=== PATIENT | male | born 1955 | race Caucasian/White ===

== ENCOUNTER 2018-11-23 20:38 | Emergency (ER) | payer MEDICARE, BC ==
--- OUTSIDE RECORDS SUMMARY | 2018-11-23 20:58 | XMS REPORT | Continuity of Care Document ---
:1955 External Reference #:[id number] Author Name Earnestine Hung Care Team Providers Name Role Phone Oliverio Mancini MD Care Team Information Learning Development Specialist Unavailable Payers Date Identification Numbers Payment Provider Subscriber Effective: 2018 Policy Number: [id number] Medicare Alpesh R Contento Group Name: Federal [address] PayID: [id number] [place] [id number] Effective: 2012 Policy Number: [id number] [facility] Commercial Alpesh R Contento Group Number: [employer] [address] [address] Group Name: TYREE Rose [id number] PayID: [id number] Onset: 2005 [employer] [address] [place] [address] Onset: 2010 Policy Number: [id number] [place] [employer] Alpesh R Contento PayID: [id number] [address] [place] [address] Advance Directives Description No Information Available Problems Date Description Provider Status Onset: 11/25/2013 Vitamin D deficiency Oliverio Mancini MD Active Onset: 12/29/2012 Type II diabetes mellitus Oliverio Mancini MD Active uncontrolled Onset: 03/07/2007 Impotence of organic origin Oliverio Mancini MD Active Onset: 11/27/2004 Proteinuria Oliverio Mancini MD Active Onset: 11/27/2004 Obesity Oliverio Mancini MD Active Onset: 11/27/2004 Tobacco user Oliverio Mancini MD Active Onset: 11/27/2004 Family history of prostate cancer Oliverio Mancini MD Active Onset: 11/27/2004 Carpal tunnel syndrome Oliverio Mancini MD Active Onset: 11/26/2004 Benign essential hypertension Oliverio Mancini MD Active Onset: 11/26/2004 Mixed hyperlipidemia Oliverio Mancini MD Active Onset: 09/17/2014 Obstructive sleep apnea syndrome Oliverio Mancini MD Active Onset: 10/15/2014 Type 2 diabetes mellitus Oliverio Mancini MD Active Onset: 10/15/2014 Sleep apnea Oliverio Mancini MD Active Onset: 03/05/2015 Chronic renal failure Oliverio Mancini MD Active Onset: 06/26/2015 Essential hypertension Oliverio Mancini MD Active Onset: 11/18/2015 Gastroesophageal reflux disease Oliverio Mancini MD Active Onset: 01/31/2017 Diabetic neuropathy Oliverio Mancini MD Active Onset: 11/27/2004 Diabetic polyneuropathy Oliverio Mancini MD Inactive Inactive: 01/31/2017 Onset: 06/26/2015 Renal failure syndrome Oliverio Mancini MD Inactive Inactive: 01/31/2017 Family History Date Family Member(s) Observation Comments Father DM2 Father CAD Father [place] Father Cancer, Prostate Mother PVD Mother CHF Mother DM2 First Brother Essential Tremor Social History Type Date Description Comments Sex Unknown Marital Status Lives With Spouse 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 ETOH Use Occasionally consumes alcohol Tobacco Use Start: Unknown Patient is a current smoker, smokes every day Smoking Status Reviewed: 11/22/18 Patient is a current smoker, smokes every day Allergies, Adverse Reactions, Alerts Date Description Reaction Status Severity Comments 09/10/2014 Celebrex Active GI Upset 09/10/2014 Flu Virus Vaccine Active Myalgias Medications Medication Date Status Form Strength Qnty SIG Indications Ordering Provider Rosuvastatin 04/05/ Active Tablets 5mg 90tabs take one E78.2 Digiovanna Calcium 2016 tablet by Oliverio mouth MD every evening Ranitidine HCL 11/17/ Active Tablets 300mg 14tabs take one K21.9 Digiovanna 2015 tablet by Oliverio mouth MD every day maximum daily dose=1 tablet Metoprolol 03/05/ Active Tablets ER 50mg 90tabs take one I10 Digiovanna Succinate ER 2014 24HR tablet by , leticia Duron MD every day Vitamin D3 10/15/ Active Capsules 2000Unit OTC 1 by E55.9 Digiovanna 2014 mouth , Oliverio, once MD daily Humalog Mix 03/21/ Active Supn (75-25)100 120uni inject 36 E11.65 Digiovanna 75/25 Kwikpen 2011 Unit/ML ts to 40 , pako Duron MD under the skin every morning and 80 to 90 units under the skin every evening E11.22 Amlodipine 11/04/2011 Active Tablets 10mg 90tabs take one I10 Digiovanna, Besylate tablet by MD Oliverio mouth every day Lisinopril 08/29/2009 Active Tablets 40mg 90tabs take one I10 Digiovanna, tablet by MD Oliverio mouth every day R80.1 N19 Aspirin Ec Low 11/13/[address] 81mg 100tabs 1 po qam E11.65 Unknown Dose with food I10 Torsemide Active Tablets 20mg 1 PO Q Am I10 Valdez Mcghee MD R60.0 N19 Onetouch Active Strips 200units Test Two Times E11.65 Digiovankosta, Ultra Blue A Day as MD Oliverio Needed Maximum Daily Dose=Three Times E10.42 E11.22 Fluticasone Active Suspension 50mcg/Act 1 spray J31.0 James Jameson MD Propionate per nostril twice a day Zostavax 04/05/2017 Hx Suspension 72457Zgs/0 1 administer Digiovanna, - Rec .65ML u 1 dose MD Oliverio 05/05/2017 n i t s Azithromycin 08/05/2016 Hx Tablets 250mg 6 2 pills by Bo Mancini, - t mouth day MD Oliverio 08/15/2016 a 1, then 1 b pill once s daily for 4 more days (take w/ food) Benzonatate 08/05/2016 Hx Capsules 200mg 3 1 pill by Bo Mancini, - 0 mouth 3 MD Oliverio 09/04/2016 c times a a day as p needed for s cough (swallow whole) Proair HFA 08/05/2016 Hx Aerosol 108(90Base 8 2 puffs R05 Digiovanna, - ) mcg/Act . every 3 h MD Oliverio 12/14/2016 5 as needed 0 for sob 0 g m [facility] Vitamin D3 10/03/2013 Hx Capsules 1000Unit 1 po Unknown - QWEEKx 10 10/15/2014 Weeks Atorvastatin 12/29/2012 Hx Tablets 20mg 9 Take 1 E78.2 Digiovanna, Calcium - 0 Tablet By MD Oliveiro 04/05/2017 t Mouth a Every b Evening s Omeprazole 07/28/[address] 20mg 3 Take 1 K21.9 Digiovanna, - 0 Capsule By MD Oliverio 11/18/2015 c Mouth a Every Day p s Viagra 05/25/2008 Hx Tablets 100mg 6 1 po qd Digiovanna, - t prn as Oliverio Bishop MD 08/05/2014 a directed b s Toprol XL Hx Tablets ER 25mg 1 by mouth 401.1 Unknown - 24HR every day 03/05/2015 Ergocalciferol Hx Capsules [id number] 1 1 by mouth Unknown - 2 every 1 10/06/2014 c week x 12 a weeks p s Penicillin V Hx Tablets 500mg 1 tab by Unknown Potassium - mouth 03/31/2016 three times a day Mometasone Hx Suspension 50mcg/Act 1 - 2 G47.33 James Jameosn MD Furoate - Sprays/Nos 12/14/2016 tril qd J31.0 Immunizations CPT Code Status Date Vaccine Lot # [id number] Given 09/29/2018 Flu Vaccine NOS 68030 Given 09/14/2018 Prevnar 13 Pneumococal Conjugate Vaccine [id number] Given 01/23/2010 Tdap (Adacel) Ages 7 And Above Only 68691 Given 01/23/2010 Tdap (Adacel) Ages 7 And Above Only 32274 Given 11/07/2009 Pneumococcal 23 Immunization Adult Or Immunosuppressed Patient Vital Signs Date Vital Result Comment 11/22/2018 2:11pm Body Temperature 98.1 F Heart Rate 74 /min Respiratory Rate 18 /min BP Systolic 120 mmHg BP Diastolic 70 mmHg Height 73 inches 6'1" Weight 271.19 lb BMI (Body Mass Index) 35.8 kg/m2 09/14/2018 8:05am Heart Rate 76 /min Respiratory Rate 18 /min BP Systolic 122 mmHg BP Diastolic 72 mmHg Height 72.75 inches 6'0.75" Weight 273.00 lb BMI (Body Mass Index) 36.3 kg/m2 12/29/2017 9:50am Heart Rate 66 /min Respiratory Rate 18 /min BP Systolic 120 mmHg BP Diastolic 78 mmHg Height 72.75 inches 6'0.75" Weight 264.00 lb BMI (Body Mass Index) 35.1 kg/m2 08/09/2017 2:51pm Heart Rate 74 /min Respiratory Rate 18 /min BP Systolic 122 mmHg BP Diastolic 70 mmHg Height 72.75 inches 6'0.75" Weight 268.00 lb BMI (Body Mass Index) 35.6 kg/m2 04/05/2017 3:40pm Body Temperature 97.1 F Heart Rate 74 /min Respiratory Rate 18 /min BP Systolic 122 mmHg BP Diastolic 76 mmHg Height 72.75 inches 6'0.75" Weight 260.00 lb BMI (Body Mass Index) 34.5 kg/m2 12/14/2016 3:00pm Heart Rate 70 /min BP Systolic 122 mmHg BP Diastolic 78 mmHg Height 72.75 inches 6'0.75" Weight 272.00 lb BMI (Body Mass Index) 36.1 kg/m2 08/05/2016 3:40pm Body Temperature 97.7 F Heart Rate 64 /min Respiratory Rate 18 /min BP Systolic 120 mmHg BP Diastolic 72 mmHg Height 72.75 inches 6'0.75" Weight 266.00 lb BMI (Body Mass Index) 35.3 kg/m2 O2 % BldC Oximetry 92 % Ra 03/30/2016 4:12pm Heart Rate 68 /min Respiratory Rate 19 /min BP Systolic 136 mmHg BP Diastolic 80 mmHg Height 72.75 inches 6'0.75" Weight 259.00 lb BMI (Body Mass Index) 34.4 kg/m2 11/18/2015 2:54pm Heart Rate 76 /min Respiratory Rate 18 /min BP Systolic 132 mmHg BP Diastolic 80 mmHg Height 72.75 inches 6'0.75" Weight 265.00 lb BMI (Body Mass Index) 35.2 kg/m2 06/26/2015 4:15pm Heart Rate 76 /min Respiratory Rate 18 /min BP Systolic 132 mmHg BP Diastolic 60 mmHg Height 72.75 inches 6'0.75" Weight 275.00 lb BMI (Body Mass Index) 36.5 kg/m2 03/05/2015 4:01pm Heart Rate 68 /min Respiratory Rate 18 /min BP Systolic 148 mmHg L/RG BP Diastolic 88 mmHg L/RG BP Systolic Recheck 152 mmHg L at rest BP Diastolic Recheck 80 mmHg L at rest Height 72.75 inches 6'0.75" Weight 266.00 lb BMI (Body Mass Index) 35.3 kg/m2 10/15/2014 3:03pm Heart Rate 76 /min Respiratory Rate 22 /min BP Systolic 138 mmHg L/LG BP Diastolic 74 mmHg L/LG Height 72.11 inches 6'0.11" Weight 254.00 lb Down 13# BMI (Body Mass Index) 34.3 kg/m2 06/08/2014 7:58am Heart Rate 70 /min Respiratory Rate 18 /min BP Systolic 150 mmHg BP Diastolic 82 mmHg Height 73.1 inches 6'1.10" Weight 267.00 lb 03/08/2014 9:28am Heart Rate 70 /min Respiratory Rate 18 /min BP Systolic 140 mmHg BP Diastolic 70 mmHg Height 73.1 inches 6'1.10" Weight 273.00 lb 12/07/2013 10:25am Heart Rate 74 /min Respiratory Rate 20 /min BP Systolic 134 mmHg L/LG BP Diastolic 90 mmHg L/LG Height 73.1 inches 6'1.10" Weight 276.00 lb Up 7# Results Test Date Facility Test Result H/L Range Note Basic (BMP) 09/07/2018 [facility] Sodium 143 mmol/L 135-146 1, 2 Potassium 4.4 mmol/L 3.5-5.2 Chloride# 108 mmol/L 97-110 3 Carbon Dioxide 25 mmol/L 24-34 Glucose 80 mg/dL 70-105 BUN 19 mg/dL 6-26 Creatinine 1.8 mg/dL High 0.5-1.4 Calcium 9.7 mg/dL 8.5-10.2 Non K[facility]nn Egfr 38 Low >60 4 Katelynn Egfr 46 Low >60 5 Anion Gap 10 mmol/L 5-15 6 Hemoglobin A1c 09/07/2018 [facility] Hemoglobin A1c 7.2 % High 4.1-5.9 Estimated Average Glucose Calc 160 mg/dL High 71-140 Lipid Treatment 09/07/2018 [facility] Cholesterol 148 mg/dL 50-199 Triglycerides 100 mg/dL 30-200 HDL 44 mg/dL 29-71 7 Chol/ HDL Ratio 3.4 ratio Low 4.0-6.7 VLDL 20 mg/dL 2-29 LDL (Calc) 84 mg/dL 20-99 8 Alt 13 U/L 3-42 Ast 16 U/L 8-42 Laboratory test finding 09/07/2018 [facility] Vitamin D 25 19 ng/mL Low 30- 100 9 Hydroxy CBC with Auto Diff-fcmg 09/07/2018 [facility] WBC 6.5 K/uL 4.1-11.0 RBC 4.83 M/uL 4.60-6.10 Hemoglobin 14.6 gm/dL 13.5-18.0 Hematocrit 42.6 % 41.0-53.0 MCV 88.1 fL 80.0-97.0 MCH 30.2 pg 27.0-32.0 MCHC 34.3 g/dL 32.0-36.0 RDW 13.3 % 11.5-14.5 PLT Count 230 K/ul 140-400 MPV 8.4 FL 7.1-10.7 Neutrophil 52.6 % 35.0-75.0 Lymphocyte 32.7 % 16.0-52.0 Monocyte 8.9 % 2.0-10.0 Eosinophil 4.6 % 0.0-5.0 Basophil 1.2 % 0.0-4.0 Abs Neutrophils 3.4 K/uL 2.1-8.0 Abs Lymphocytes 2.1 K/uL 0.8-5.5 Abs Monocytes 0.6 K/uL 0.1-1.0 Abs Eosinophils 0.3 K/uL 0.0-0.5 Abs Basophils 0.1 K/uL 0.0-0.3 Basic (BMP) 12/22/2017 [facility] Sodium 143 mmol/L 135-146 10, 11 Potassium 4.6 mmol/L 3.5-5.2 Chloride# 107 mmol/L 97-110 12 Carbon Dioxide 28 mmol/L 24-34 Glucose 153 mg/dL High 70-105 BUN 30 mg/dL High 6-26 Creatinine 2.3 mg/dL High 0.5-1.4 Calcium 9.5 mg/dL 8.5-10.2 Non Katelynn Egfr 29 Low >60 13 Katelynn Egfr 35 Low >60 14 Anion Gap 8 mmol/L 5-15 15 Hemoglobin A1c 12/22/2017 [facility] Hemoglobin A1c 7.0 % High 4.1-5.9 Estimated Average Glucose Calc 154 mg/dL High 71-140 Lipid Treatment 12/22/2017 [facility] Cholesterol 138 mg/dL 50-199 Triglycerides 137 mg/dL 30-200 HDL 37 mg/dL 29-71 16 Chol/ HDL Ratio 3.7 ratio Low 4.0-6.7 VLDL 27 mg/dL 2-29 LDL (Calc) 73 mg/dL 20-99 17 Alt 16 U/L 3-42 Ast 16 U/L 8-42 Laboratory test finding 12/22/2017 [facility] Vitamin D 25 Hydroxy 15 ng/mL Low 30-100 18 TSH 1.32 uIU/mL 0.35-4.94 [facility] With [facility]22[facility] K/uL 4.1-11.0 RBC 4.57 M/uL Low 4.60-6.10 Hemoglobin 13.7 gm/dL 13.5-18.0 Hematocrit 40.1 % Low 41.0-53.0 MCV 87.7 fL 80.0-97.0 MCH 29.9 pg 27.0-32.0 MCHC 34.1 g/dL 32.0-36.0 RDW 13.5 % 11.5-14.5 PLT Count 196 K/ul 140-400 MPV 8.3 FL 7.1-10.7 Neutrophil 49.2 % 35.0-75.0 Lymphocyte 33.8 % 16.0-52.0 Monocyte 10.8 % High 2.0-10.0 Eosinophil 5.6 % High 0.0-5.0 Basophil 0.6 % 0.0-4.0 Abs Neutrophils 2.5 K/uL 2.1-8.0 Abs Lymphocytes 1.7 K/uL 0.8-5.5 Abs Monocytes 0.5 K/uL 0.1-1.0 Abs Eosinophils 0.3 K/uL 0.0-0.5 Abs Basophils 0.0 K/uL 0.0-0.3 Laboratory test finding 12/22/2017 [facility] PSA 1.200 ng/mL 0.000-4.000 19 Basic (BMP) 08/02/2017 [facility] Sodium 144 mmol/L 135-146 20, 21 Potassium 4.8 mmol/L 3.5-5.2 Chloride# 106 mmol/L 97-110 22 Carbon Dioxide 30 mmol/L 24-34 Glucose 94 mg/dL 70-105 Creatinine 2.0 mg/dL High 0.5-1.4 Calcium 9.8 mg/dL 8.5-10.2 Non Katelynn Egfr 33 Low >60 23 Katelynn Egfr 40 Low >60 24 Anion Gap 8 mmol/L 7-16 25 BUN 23 mg/dL 6-26 Hemoglobin A1c 08/02/2017 [facility] Hemoglobin A1c 7.2 % High 4.1-5.9 Estimated Average Glucose Calc 160 High 71-140 Lipid Treatment 08/02/2017 [facility] Cholesterol 145 mg/dL 50-199 Triglycerides 113 mg/dL 30-200 HDL 46 mg/dL 26 Chol/ HDL Ratio 3.2 ratio Low 4.0-6.7 VLDL 23 mg/dL 2-29 LDL (Calc) 77 mg/dL 20-99 27 Alt 11 U/L 3-42 Ast 16 U/L 8-42 Laboratory test finding 08/02/2017 [facility] Vit D25oh 25 ng/mL Low 31-100 Basic (BMP) 03/29/2017 [facility] Sodium 144 mmol/L 135-146 28, 29 Potassium 4.5 mmol/L 3.5-5.2 Chloride# 106 mmol/L 97-110 30 Carbon Dioxide 29 mmol/L 24-34 Glucose 111 mg/dL High 70-105 BUN 20 mg/dL 6-26 Creatinine 1.5 mg/dL High 0.5-1.4 Calcium 9.5 mg/dL 8.5-10.2 Non Katelynn Egfr 46 Low >60 31 Katelynn Egfr 55 Low >60 32 Anion Gap 9 mmol/L 7-16 33 Hemoglobin A1c 03/29/2017 [facility] Hemoglobin A1c 7.4 % High 4.1-5.9 Estimated Average Glucose Calc 166 High 71-140 Lipid Treatment 03/29/2017 [facility] Cholesterol 227 mg/dL High 50-199 Triglycerides 136 mg/dL 30-200 HDL 43 mg/dL 34 Chol/ HDL Ratio 5.3 ratio 4.0-6.7 VLDL 27 mg/dL 2-29 LDL (Calc) 157 mg/dL High 20-99 35 Alt 9 U/L 3-42 Ast 11 U/L 8-42 Laboratory test finding 03/29/2017 [facility] Vit D,25 Hydroxy 35 ng/mL 31- 100 TSH 1.91 uIU/mL 0.35-4.94 Vitamin B12 270 pg/mL 180-914 Basic (BMP) 12/08/2016 [facility] Sodium 142 mmol/L 135-146 36, 37 Potassium 4.8 mmol/L 3.5-5.2 Chloride# 107 mmol/L 97-110 38 Carbon Dioxide 29 mmol/L 24-34 Glucose 175 mg/dL High 70-105 BUN 23 mg/dL 6-26 Creatinine 1.9 mg/dL High 0.5-1.4 Calcium 9.3 mg/dL 8.5-10.2 Non Katelynn Egfr 35 Low >60 39 Katelynn Egfr 42 Low >60 40 Anion Gap 11 mmol/L 7-16 41 Laboratory test finding 12/08/2016 [facility] Hemoglobin A1c 8.5 % High 4.1- 5.9 Lipid Treatment 12/08/2016 [facility] Cholesterol 131 mg/dL 50-199 Triglycerides 132 mg/dL 30-200 HDL 33 mg/dL 29- 42 Chol/ HDL Ratio 4.0 ratio 4.0-6.7 VLDL 26 mg/dL 2-29 LDL (Calc) 72 mg/dL 20-99 43 Alt 10 U/L 3-42 Ast 11 U/L 8-42 Laboratory test finding 12/08/2016 [facility] Vit D,25 Hydroxy 20 ng/mL Low 31-100 PSA 1.210 ng/mL 0.000-4.000 44 Basic (BMP) 07/21/2016 [facility] Sodium 140 mmol/L 134-142 45 Potassium 4.6 mmol/L 3.5-5.2 Chloride 103 mmol/L 97-109 Carbon Dioxide 30 mmol/L 24-34 Glucose 159 mg/dL High 70-105 BUN 18 mg/dL 6-26 Creatinine 1.7 mg/dL High 0.5-1.4 Calcium 9.5 mg/dL 8.5-10.2 Anion Gap 12 mmol/L 6-14 Non Katelynn Egfr 41 Low >60 46 Katelynn Egfr 49 Low >60 47 Laboratory test finding 07/21/2016 [facility] Hemoglobin A1c 8.2 % High 4.1- 5.9 Lipid Treatment 07/21/2016 [facility] Cholesterol 149 mg/dL 50-199 Triglycerides 129 mg/dL 30-200 HDL 38 mg/dL 29-71 48 Chol/ HDL Ratio 3.9 ratio Low 4.0-6.7 VLDL 26 mg/dL 2-29 LDL (Calc) 85 mg/dL 20-99 49 Alt 14 U/L 3-42 Ast 14 U/L 8-42 CBC With Auto Diff 07/21/2016 [facility] WBC 6.6 K/uL 4.1-11.0 RBC 4.50 M/uL Low 4.60-6.10 Hemoglobin 13.8 gm/dL 13.5-18.0 Hematocrit 40.1 % Low 41.0-53.0 MCV 89.1 fL 80.0-97.0 MCH 30.6 pg 27.0-32.0 MCHC 34.4 g/dL 32.0-36.0 RDW 13.1 % 11.5-14.5 PLT Count 222 K/ul 140-400 Neutrophil 50.5 % 35.0-75.0 Lymphocyte 31.0 % 16.0-52.0 Monocyte 10.1 % High 2.0-10.0 Eosinophil 7.1 % High 0.0-5.0 Basophil 1.3 % 0.0-4.0 Abs Neutrophils 3.3 K/uL 2.1-8.0 Abs Lymphocytes 2.0 K/uL 0.8-5.5 Abs Monocytes 0.7 K/uL 0.1-1.0 Abs Eosinophils 0.5 K/uL 0.0-0.5 Abs Basophils 0.1 K/uL 0.0-0.3 Basic (BMP) 03/24/2016 [facility] Sodium 139 mmol/L 134-142 50 Potassium 5.0 mmol/L 3.5-5.2 Chloride 106 mmol/L 97-109 Carbon Dioxide 30 mmol/L 24-34 Glucose 137 mg/dL High 70-105 BUN 28 mg/dL High 6-26 Creatinine 2.1 mg/dL High 0.5-1.4 Calcium 9.7 mg/dL 8.5-10.2 Anion Gap 8 mmol/L 6-14 Non Katelynn Egfr 32 Low >60 51 Katelynn Egfr 39 Low >60 52 Laboratory test finding 03/24/2016 [facility] Hemoglobin A1c 7.6 % High 4.1- 5.9 Vit D,25 Hydroxy 31 ng/mL 31-100 Lipid Treatment 03/24/2016 [facility] Cholesterol 130 mg/dL 50-199 Triglycerides 112 mg/dL 30-200 HDL 35 mg/dL 29-71 53 Chol/ HDL Ratio 3.7 ratio Low 4.0-6.7 VLDL 22 mg/dL 2-29 LDL (Calc) 73 mg/dL 20-99 54 Alt 11 U/L 3-42 Ast 10 U/L 8-42 Basic (BMP) 10/23/2015 [facility] Sodium 141 mmol/L 134-142 55 Potassium 4.8 mmol/L 3.5-5.2 Chloride 105 mmol/L 97-109 Carbon Dioxide 30 mmol/L 24-34 Glucose 180 mg/dL High 70-105 BUN 29 mg/dL High 6-26 Creatinine 2.0 mg/dL High 0.5-1.4 Calcium 9.4 mg/dL 8.5-10.2 Anion Gap 11 mmol/L 6-14 Non Katelynn Egfr 33 Low >60 56 Katelynn Egfr 40 Low >60 57 Laboratory test finding 10/23/2015 [facility] Hemoglobin A1c 7.6 % High 4.1- 5.9 Vit D,25 Hydroxy 33 ng/mL 31-100 PSA 1.300 ng/mL 0.000-4.000 58 CBC With Auto Diff 10/23/2015 [facility] WBC 5.7 K/uL 4.1-11.0 RBC 4.66 M/uL 4.60-6.10 Hemoglobin 13.8 gm/dL 13.5-18.0 Hematocrit 41.2 % 41.0-53.0 MCV 88.4 fL 80.0-97.0 MCH 29.5 pg 27.0-32.0 MCHC 33.4 g/dL 32.0-36.0 RDW 13.0 % 11.5-14.5 PLT Count 210 K/ul 140-400 Neutrophil 51.9 % 35.0-75.0 Lymphocyte 32.6 % 16.0-52.0 Monocyte 10.1 % High 2.0-10.0 Eosinophil 4.1 % 0.0-5.0 Basophil 1.3 % 0.0-4.0 Abs Neutrophils 2.9 K/uL 2.1-8.0 Abs Lymphocytes 1.8 K/uL 0.8-5.5 Abmon 0.6 K/uL 0.1-1.0 Abs Eosinophils 0.2 K/uL 0.0-0.5 Abs Basophils 0.1 K/uL 0.0-0.3 Laboratory test finding 10/23/2015 [facility] Magnesium 1.9 mg/dL 1.5-2.7 Vitamin B12 337 pg/mL 180-914 Lipid Treatment 10/23/2015 [facility] Cholesterol 139 mg/dL 50-199 Triglycerides 136 mg/dL 30-200 HDL 38 mg/dL 29- 59 Chol/ HDL Ratio 3.7 ratio Low 4.0-6.7 VLDL 27 mg/dL 2-29 LDL (Calc) 74 mg/dL 20-99 60 Alt 11 U/L 3-42 Ast 14 U/L 8- Basic (BMP) 06/19/2015 [facility] Sodium 141 mmol/L 134-142 61 Potassium 4.2 mmol/L 3.5-5.2 Chloride 104 mmol/L 97-109 Carbon Dioxide 31 mmol/L 24-34 Glucose 129 mg/dL High 70-105 BUN 13 mg/dL 6-26 Creatinine 1.5 mg/dL High 0.5-1.4 Calcium 9.6 mg/dL 8.5-10.2 Anion Gap 10 mmol/L 6- Non Katelynn Egfr 48 Low >60 62 Katelynn Egfr 58 Low >60 63 Laboratory test finding 06/19/2015 [facility] Hemoglobin A1c 7.5 % High 4.1- 5.9 Hepatitis C Virus Antibody NONREACTIVE Nonreactive Laboratory test finding 02/14/2015 [facility] Vit D,25 Hydroxy 38 ng/mL 31- 100 64 Lipid Treatment 02/14/2015 [facility] Cholesterol 141 mg/dL 50-199 Triglycerides 99 mg/dL 30-200 HDL 40 mg/dL - 65 Chol/ HDL Ratio 3.5 ratio Low 4.0-6.7 VLDL 20 mg/dL 2- LDL (Calc) 81 mg/dL 20-99 66 Alt 11 U/L 3-42 Ast 13 U/L 8- Laboratory test finding 02/14/2015 [facility] Hemoglobin A1c 7.1 % High 4.1- 5.9 Basic (BMP) 02/14/2015 [facility] Sodium 143 mmol/L High 134-142 Potassium 4.8 mmol/L 3.5-5.2 Chloride 107 mmol/L 97-109 Carbon Dioxide 31 mmol/L 24-34 Glucose 108 mg/dL High 70-105 BUN 17 mg/dL 6-26 Creatinine 1.7 mg/dL High 0.5-1.4 Calcium 9.4 mg/dL 8.5-10.2 Anion Gap 10 mmol/L 6-14 Non Katelynn Egfr 42 Low >60 67 Katelynn Egfr 51 Low >60 68 Laboratory test finding 10/01/2014 [facility] Hemoglobin A1c 6.9 % High 4.1- 5.9 69 Basic (BMP) 09/28/2014 [facility] Sodium 143 mmol/L High 134-142 70 Potassium 4.5 mmol/L 3.5-5.2 Chloride 105 mmol/L 97-109 Carbon Dioxide 32 mmol/L 24-34 Glucose 118 mg/dL High 70-105 BUN 24 mg/dL 6-26 Creatinine 1.6 mg/dL High 0.5-1.4 Calcium 9.5 mg/dL 8.5-10.2 Anion Gap 11 mmol/L 6-14 Non Katelynn Egfr 45 Low >60 71 Katelynn Egfr 55 Low >60 72 Lipid Treatment 09/28/2014 [facility] Cholesterol 136 mg/dL 50-199 Triglycerides 111 mg/dL 30-200 HDL 35 mg/dL 29-71 73 Chol/ HDL Ratio 3.9 ratio Low 4.0-6.7 VLDL 22 mg/dL 2-29 LDL (Calc) 79 mg/dL 20-99 74 Alt 13 U/L 3-42 Ast 14 U/L 8-42 Laboratory test finding 09/28/2014 [facility] Vit D,25 Hydroxy 31 ng/mL 31- 100 PSA 0.900 ng/mL 0.000-4.000 75 Laboratory test finding 06/01/2014 N2N/[facility]D Import % A1c 7.1 % High 4.1- 6.5 Alt 15.0 U/L Low 21.0-72.0 Ast 17.0 U/L 17.0-59.0 BUN 16.0 mg/dL 9.0-21.0 BUN/Creat Ratio 10.0 ratio Low 12.0-20.0 Calcium 10.4 mg/dL 8.7-10.5 Chloride 107.0 mmol/L 98.0-107.0 Co2 27.0 mmol/L 22.0-30.0 Creatinine-Serum 1.6 mg/dL High 0.8-1.5 Glucose 91.0 mg/dL 75.0-110.0 Potasium 5.4 mmol/L High 3.6-5.0 Sodium 145.0 mmil/L 137.0-145.0 Vitamin D 18.6 ng/mL Low 30.0-100.0 eGFR 47.1 Lipid Panel 06/01/2014 [facility] [employer] [facility] Chol/HDL Ratio 3.7 ratio Cholesterol 143.0 mg/dL 50.0-199.0 HDL 39.0 mg/dL 29.0-67.0 LDL, Calculated 77.8 mg/dL 20.0-129.0 Triglycerides 131.0 mg/dL 30.0-249.0 vLDL 26.2 ng/dL Laboratory test finding 03/01/2014 N2N/CCD Import % A1c 7.6 % High 4.1- 6.5 Alt 14.0 U/L Low 21.0-72.0 Ast 19.0 U/L 17.0-59.0 BUN 22.0 mg/dL High 9.0-21.0 BUN/Creat Ratio 12.2 ratio 12.0-20.0 Calcium 9.8 mg/dL 8.7-10.5 Chloride 106.0 mmol/L 98.0-107.0 Co2 25.0 mmol/L 22.0-30.0 Creatinine-Serum 1.8 mg/dL High 0.8-1.5 Glucose 134.0 mg/dL High 75.0-110.0 Potasium 4.9 mmol/L 3.6-5.0 Sodium 142.0 mmil/L 137.0-145.0 Vitamin D 25.2 ng/mL Low 30.0-100.0 eGFR 41.1 Lipid Panel 03/01/2014 [facility] [facility] Chol/HDL Ratio 4.1 ratio Cholesterol 147.0 mg/dL 50.0-199.0 HDL 36.0 mg/dL 29.0-67.0 LDL, Calculated 85.4 mg/dL 20.0-129.0 Triglycerides 128.0 mg/dL 30.0-249.0 vLDL 25.6 ng/dL Laboratory test finding 11/30/2013 [facility] [employer] [facility] % A1c 7.7 % High 4.1- 6.5 Alt 22.0 U/L 21.0-72.0 Ast 18.0 U/L 17.0-59.0 BUN 16.0 mg/dL 9.0-21.0 BUN/Creat Ratio 10.7 ratio Low 12.0-20.0 Calcium 9.4 mg/dL 8.7-10.5 Chloride 104.0 mmol/L 98.0-107.0 Co2 28.0 mmol/L 22.0-30.0 Creatinine-Serum 1.5 mg/dL 0.8-1.5 Glucose 92.0 mg/dL 75.0-110.0 Potasium 4.3 mmol/L 3.6-5.0 Sodium 141.0 mmil/L 137.0-145.0 eGFR 50.7 Lipid Panel 11/30/2013 N2N/CCD Import Chol/HDL Ratio 4.6 ratio Cholesterol 199.0 mg/dL 50.0-199.0 HDL 43.0 mg/dL 29.0-67.0 LDL, Calculated 111.2 mg/dL 20.0-129.0 Triglycerides 224.0 mg/dL 30.0-249.0 vLDL 44.8 ng/dL 1 07/17 preOV 2 Updated reference range on new analyzer 3 Updated reference range on new analyzer 4 Concerning GFR Guidelines: Normal function or mild renal disease, if clinically at risk: >/=60 mL/min Moderately decreased: 30-59 Severely decreased: 15-29 Renal failure: <15 Glomerular Filtration Rate (GFR) is estimated based on the MDRD equation, which assumes a steady state for creatinine as recommended by the National Kidney Disease Education Program in conjunction with the National Institutes of Health and the National Kidney Foundation. Clinical conditions in which it may be necessary to measure GFR by using clearance methods include extremes of age and body size, severe malnutrition or obesity, diseases of skeletal muscle, paraplegia or quadriplegia, vegetarian diet, rapidly changing kidney function, and calculation of the dose of potentially toxic drugs that are excreted by the kidneys. 5 Concerning GFR Guidelines for Americans: Normal function or mild renal disease, if clinically at risk: >/=60 mL/min Moderately decreased: 30-59 Severely decreased: 15-29 Renal failure: <15 6 Updated Reference Range 7 Per NCEP ATP III Guidelines: Results lower than 40 mg/dL are suggestive of increased risk for coronary artery disease. Results > or=to 60 mg/dL are considered a negative risk factor. 8 Per NCEP ATP III Guidelines: Normal Population <130 Patients with medical conditions: CHD/DM Optimal: <100 Borderline high: 130-159 High: 160-189 Very high: >189 9 Clinical Guidelines for recommended serum 25(OH)Vitamin D Deficient at less than 20 ng/mL Insufficient at 20 to <30 ng/mL Sufficient at 30-100 ng/mL Toxicity at greater than 100 ng/mL 10 12/15 preOV 11 Updated reference range on new analyzer 12 Updated reference range on new analyzer 13 Concerning GFR Guidelines: Normal function or mild renal disease, if clinically at risk: >/=60 mL/min Moderately decreased: 30-59 Severely decreased: 15-29 Renal failure: <15 Glomerular Filtration Rate (GFR) is estimated based on the MDRD equation, which assumes a steady state for creatinine as recommended by the National Kidney Disease Education Program in conjunction with the National Institutes of Health and the National Kidney Foundation. Clinical conditions in which it may be necessary to measure GFR by using clearance methods include extremes of age and body size, severe malnutrition or obesity, diseases of skeletal muscle, paraplegia or quadriplegia, vegetarian diet, rapidly changing kidney function, and calculation of the dose of potentially toxic drugs that are excreted by the kidneys. 14 Concerning GFR Guidelines for Americans: Normal function or mild renal disease, if clinically at risk: >/=60 mL/min Moderately decreased: 30-59 Severely decreased: 15-29 Renal failure: <15 15 Updated Reference Range 16 Per NCEP ATP III Guidelines: Results lower than 40 mg/dL are suggestive of increased risk for coronary artery disease. Results > or=to 60 mg/dL are considered a negative risk factor. 17 Per NCEP ATP III Guidelines: Normal Population <130 Patients with medical conditions: CHD/DM Optimal: <100 Borderline high: 130-159 High: 160-189 Very high: >189 18 Clinical Guidelines for recommended serum 25(OH)Vitamin D Deficient at less than 20 ng/mL Insufficient at 20 to <30 ng/mL Sufficient at 30-100 ng/mL Toxicity at greater than 100 ng/mL 19 Beginning 10/25/06 PSA values assayed at [facility] uses chemiluminescence methodology manufactured by [employer] for use on the DXI analyzer. Values obtained with different assay methods or kits can not be used interchangeably. Serum PSA measurement is not an absolute test for malignancy. The PSA value should be used in conjunction with information available from clinical evaluation and other diagnostic procedures. 20 08/15 preOV 21 Updated reference range on new analyzer 22 Updated reference range on new analyzer 23 Concerning GFR Guidelines: Normal function or mild renal disease, if clinically at risk: >/=60 mL/min Moderately decreased: 30-59 Severely decreased: 15-29 Renal failure: <15 Glomerular Filtration Rate (GFR) is estimated based on the MDRD equation, which assumes a steady state for creatinine as recommended by the National Kidney Disease Education Program in conjunction with the National Institutes of Health and the National Kidney Foundation. Clinical conditions in which it may be necessary to measure GFR by using clearance methods include extremes of age and body size, severe malnutrition or obesity, diseases of skeletal muscle, paraplegia or quadriplegia, vegetarian diet, rapidly changing kidney function, and calculation of the dose of potentially toxic drugs that are excreted by the kidneys. 24 Concerning GFR Guidelines for Americans: Normal function or mild renal disease, if clinically at risk: >/=60 mL/min Moderately decreased: 30-59 Severely decreased: 15-29 Renal failure: <15 25 Updated reference range on new analyzer 26 Per NCEP ATP III Guidelines: Results lower than 40 mg/dL are suggestive of increased risk for coronary artery disease. Results > or=to 60 mg/dL are considered a negative risk factor. 27 Per NCEP ATP III Guidelines: Normal Population <130 Patients with medical conditions: CHD/DM Optimal: <100 Borderline high: 130-159 High: 160-189 Very high: >189 28 04/15 preOV 29 Updated reference range on new analyzer 30 Updated reference range on new analyzer 31 Concerning GFR Guidelines: Normal function or mild renal disease, if clinically at risk: >/=60 mL/min Moderately decreased: 30-59 Severely decreased: 15-29 Renal failure: <15 Glomerular Filtration Rate (GFR) is estimated based on the MDRD equation, which assumes a steady state for creatinine as recommended by the National Kidney Disease Education Program in conjunction with the National Institutes of Health and the National Kidney Foundation. Clinical conditions in which it may be necessary to measure GFR by using clearance methods include extremes of age and body size, severe malnutrition or obesity, diseases of skeletal muscle, paraplegia or quadriplegia, vegetarian diet, rapidly changing kidney function, and calculation of the dose of potentially toxic drugs that are excreted by the kidneys. 32 Concerning GFR Guidelines for Americans: Normal function or mild renal disease, if clinically at risk: >/=60 mL/min Moderately decreased: 30-59 Severely decreased: 15-29 Renal failure: <15 33 Updated reference range on new analyzer 34 Per NCEP ATP III Guidelines: Results lower than 40 mg/dL are suggestive of increased risk for coronary artery disease. Results > or=to 60 mg/dL are considered a negative risk factor. 35 Per NCEP ATP III Guidelines: Normal Population <130 Patients with medical conditions: CHD/DM Optimal: <100 Borderline high: 130-159 High: 160-189 Very high: >189 36 12/14 preOV Fastin hours Fastin hours Fastin hours 12/14 preOV Fastin hours 12/14 preOV Fastin hours 12/14 preOV Fastin hours 37 Updated reference range on new analyzer 38 Updated reference range on new analyzer 39 Concerning GFR Guidelines: Normal function or mild renal disease, if clinically at risk: >/=60 mL/min Moderately decreased: 30-59 Severely decreased: 15-29 Renal failure: <15 Glomerular Filtration Rate (GFR) is estimated based on the MDRD equation, which assumes a steady state for creatinine as recommended by the National Kidney Disease Education Program in conjunction with the National Institutes of Health and the National Kidney Foundation. Clinical conditions in which it may be necessary to measure GFR by using clearance methods include extremes of age and body size, severe malnutrition or obesity, diseases of skeletal muscle, paraplegia or quadriplegia, vegetarian diet, rapidly changing kidney function, and calculation of the dose of potentially toxic drugs that are excreted by the kidneys. 40 Concerning GFR Guidelines for Americans: Normal function or mild renal disease, if clinically at risk: >/=60 mL/min Moderately decreased: 30-59 Severely decreased: 15-29 Renal failure: <15 41 Updated reference range on new analyzer 42 Per NCEP ATP III Guidelines: Results lower than 40 mg/dL are suggestive of increased risk for coronary artery disease. Results > or=to 60 mg/dL are considered a negative risk factor. 43 Per NCEP ATP III Guidelines: Normal Population <130 Patients with medical conditions: CHD/DM Optimal: <100 Borderline high: 130-159 High: 160-189 Very high: >189 44 Beginning 10/25/06 PSA values assayed at [facility] uses chemiluminescence methodology manufactured by [employer] for use on the DXI analyzer. Values obtained with different assay methods or kits can not be used interchangeably. Serum PSA measurement is not an absolute test for malignancy. The PSA value should be used in conjunction with information available from clinical evaluation and other diagnostic procedures. 45 cc: Dr Jose Guadalupe Mcghee08/14 preOV 08/14 preOV 08/14 preOV 08/14 preOV 46 Concerning GFR Guidelines: Normal function or mild renal disease, if clinically at risk: >/=60 mL/min Moderately decreased: 30-59 Severely decreased: 15-29 Renal failure: <15 Glomerular Filtration Rate (GFR) is estimated based on the MDRD equation, which assumes a steady state for creatinine as recommended by the National Kidney Disease Education Program in conjunction with the National Institutes of Health and the National Kidney Foundation. Clinical conditions in which it may be necessary to measure GFR by using clearance methods include extremes of age and body size, severe malnutrition or obesity, diseases of skeletal muscle, paraplegia or quadriplegia, vegetarian diet, rapidly changing kidney function, and calculation of the dose of potentially toxic drugs that are excreted by the kidneys. 47 Concerning GFR Guidelines for Americans: Normal function or mild renal disease, if clinically at risk: >/=60 mL/min Moderately decreased: 30-59 Severely decreased: 15-29 Renal failure: <15 48 Per NCEP ATP III Guidelines: Results lower than 40 mg/dL are suggestive of increased risk for coronary artery disease. Results > or=to 60 mg/dL are considered a negative risk factor. 49 Per NCEP ATP III Guidelines: Normal Population <130 Patients with medical conditions: CHD/DM Optimal: <100 Borderline high: 130-159 High: 160-189 Very high: >189 50 cc: Dr Mcghee 03/14 preOV Fasting 51 Concerning GFR Guidelines: Normal function or mild renal disease, if clinically at risk: >/=60 mL/min Moderately decreased: 30-59 Severely decreased: 15-29 Renal failure: <15 Glomerular Filtration Rate (GFR) is estimated based on the MDRD equation, which assumes a steady state for creatinine as recommended by the National Kidney Disease Education Program in conjunction with the National Institutes of Health and the National Kidney Foundation. Clinical conditions in which it may be necessary to measure GFR by using clearance methods include extremes of age and body size, severe malnutrition or obesity, diseases of skeletal muscle, paraplegia or quadriplegia, vegetarian diet, rapidly changing kidney function, and calculation of the dose of potentially toxic drugs that are excreted by the kidneys. 52 Concerning GFR Guidelines for Americans: Normal function or mild renal disease, if clinically at risk: >/=60 mL/min Moderately decreased: 30-59 Severely decreased: 15-29 Renal failure: <15 53 Per NCEP ATP III Guidelines: Results lower than 40 mg/dL are suggestive of increased risk for coronary artery disease. Results > or=to 60 mg/dL are considered a negative risk factor. 54 Per NCEP ATP III Guidelines: Normal Population <130 Patients with medical conditions: CHD/DM Optimal: <100 Borderline high: 130-159 High: 160-189 Very high: >189 55 CC: DR MCGHEE [phone] 10/15 PRE-OV Fasting 56 Concerning GFR Guidelines: Normal function or mild renal disease, if clinically at risk: >/=60 mL/min Moderately decreased: 30-59 Severely decreased: 15-29 Renal failure: <15 Glomerular Filtration Rate (GFR) is estimated based on the MDRD equation, which assumes a steady state for creatinine as recommended by the National Kidney Disease Education Program in conjunction with the National Institutes of Health and the National Kidney Foundation. Clinical conditions in which it may be necessary to measure GFR by using clearance methods include extremes of age and body size, severe malnutrition or obesity, diseases of skeletal muscle, paraplegia or quadriplegia, vegetarian diet, rapidly changing kidney function, and calculation of the dose of potentially toxic drugs that are excreted by the kidneys. 57 Concerning GFR Guidelines for Americans: Normal function or mild renal disease, if clinically at risk: >/=60 mL/min Moderately decreased: 30-59 Severely decreased: 15-29 Renal failure: <15 58 Beginning 10/25/06 PSA values assayed at [facility] [employer] uses chemiluminescence methodology manufactured by [employer] [facility] [employer] [facility] for use on the DXI analyzer. Values obtained with different assay methods or kits can not be used interchangeably. Serum PSA measurement is not an absolute test for malignancy. The PSA value should be used in conjunction with information available from clinical evaluation and other diagnostic procedures. 59 Per NCEP ATP III Guidelines: Results lower than 40 mg/dL are suggestive of increased risk for coronary artery disease. Results > or=to 60 mg/dL are considered a negative risk factor. 60 Per NCEP ATP III Guidelines: Normal Population <130 Patients with medical conditions: CHD/DM Optimal: <100 Borderline high: 130-159 High: 160-189 Very high: >189 61 CC: DR Jose Guadalupe MCGHEE (FAXED 06/21 - AD) 06/13 preOV 62 Concerning GFR Guidelines: Normal function or mild renal disease, if clinically at risk: >/=60 mL/min Moderately decreased: 30-59 Severely decreased: 15-29 Renal failure: <15 Glomerular Filtration Rate (GFR) is estimated based on the MDRD equation, which assumes a steady state for creatinine as recommended by the National Kidney Disease Education Program in conjunction with the National Institutes of Health and the National Kidney Foundation. Clinical conditions in which it may be necessary to measure GFR by using clearance methods include extremes of age and body size, severe malnutrition or obesity, diseases of skeletal muscle, paraplegia or quadriplegia, vegetarian diet, rapidly changing kidney function, and calculation of the dose of potentially toxic drugs that are excreted by the kidneys. 63 Concerning GFR Guidelines for Americans: Normal function or mild renal disease, if clinically at risk: >/=60 mL/min Moderately decreased: 30-59 Severely decreased: 15-29 Renal failure: <15 64 02/11 preOV 65 Per NCEP ATP III Guidelines: Results lower than 40 mg/dL are suggestive of increased risk for coronary artery disease. Results > or=to 60 mg/dL are considered a negative risk factor. 66 Per NCEP ATP III Guidelines: Normal Population <130 Patients with medical conditions: CHD/DM Optimal: <100 Borderline high: 130-159 High: 160-189 Very high: >189 67 Concerning GFR Guidelines: Normal function or mild renal disease, if clinically at risk: >/=60 mL/min Moderately decreased: 30-59 Severely decreased: 15-29 Renal failure: <15 Glomerular Filtration Rate (GFR) is estimated based on the MDRD equation, which assumes a steady state for creatinine as recommended by the National Kidney Disease Education Program in conjunction with the National Institutes of Health and the National Kidney Foundation. Clinical conditions in which it may be necessary to measure GFR by using clearance methods include extremes of age and body size, severe malnutrition or obesity, diseases of skeletal muscle, paraplegia or quadriplegia, vegetarian diet, rapidly changing kidney function, and calculation of the dose of potentially toxic drugs that are excreted by the kidneys. 68 Concerning GFR Guidelines for Americans: Normal function or mild renal disease, if clinically at risk: >/=60 mL/min Moderately decreased: 30-59 Severely decreased: 15-29 Renal failure: <15 69 HAS 10/15 OV 70 CC: DR. ZENG 10/14 PRE-OV HAS 10/15 OV 71 Concerning GFR Guidelines: Normal function or mild renal disease, if clinically at risk: >/=60 mL/min Moderately decreased: 30-59 Severely decreased: 15-29 Renal failure: <15 Glomerular Filtration Rate (GFR) is estimated based on the MDRD equation, which assumes a steady state for creatinine as recommended by the National Kidney Disease Education Program in conjunction with the National Institutes of Health and the National Kidney Foundation. Clinical conditions in which it may be necessary to measure GFR by using clearance methods include extremes of age and body size, severe malnutrition or obesity, diseases of skeletal muscle, paraplegia or quadriplegia, vegetarian diet, rapidly changing kidney function, and calculation of the dose of potentially toxic drugs that are excreted by the kidneys. 72 Concerning GFR Guidelines for Americans: Normal function or mild renal disease, if clinically at risk: >/=60 mL/min Moderately decreased: 30-59 Severely decreased: 15-29 Renal failure: <15 73 Per NCEP ATP III Guidelines: Results lower than 40 mg/dL are suggestive of increased risk for coronary artery disease. Results > or=to 60 mg/dL are considered a negative risk factor. 74 Per NCEP ATP III Guidelines: Normal Population <130 Patients with medical conditions: CHD/DM Optimal: <100 Borderline high: 130-159 High: 160-189 Very high: >189 75 Beginning 10/25/06 PSA values assayed at [facility] uses an EIA methodology manufactured by [employer] for use on the DXI analyzer. Values obtained with different assay methods or kits can not be used interchangeably. Serum PSA measurement is not an absolute test for malignancy. The PSA value should be used in conjunction with information available from clinical evaluation and other diagnostic procedures. 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 E78.2 Mixed hyperlipidemia I10 Essential (primary) hypertension E55.9 Vitamin D deficiency, unspecified K21.9 Gastro-esophageal reflux disease without esophagitis G47.33 Obstructive sleep apnea (adult) (pediatric) Z72.0 Tobacco use Z23 Encounter for immunization Z68.36 Body mass index (BMI) 36.0-36.9, adult Office Visit 12/29/2017 10:00a [facility] Oliverio Mancini MD I10 Essential ( primary) hypertension E11.65 Type 2 diabetes mellitus with hyperglycemia E78.2 Mixed hyperlipidemia E55.9 Vitamin D deficiency, unspecified N19 Unspecified kidney failure Z72.0 Tobacco use E66.9 Obesity, unspecified K21.9 Gastro-esophageal reflux disease without esophagitis G47.33 Obstructive sleep apnea (adult) (pediatric) Z68.35 Body mass index (BMI) 35.0-35.9, adult Office Visit 08/09/2017 3:00p [facility] Oliverio Mancini MD I10 Essential ( primary) hypertension E11.65 Type 2 diabetes mellitus with hyperglycemia E78.2 Mixed hyperlipidemia E55.9 Vitamin D deficiency, unspecified E66.9 Obesity, unspecified N19 Unspecified kidney failure Z72.0 Tobacco use Z12.5 Encounter for screening for malignant neoplasm of prostate Office Visit 04/05/2017 3:45p [facility] Oliverio Mancini MD I10 Essential ( primary) hypertension E11.65 Type 2 diabetes mellitus with hyperglycemia E78.2 Mixed hyperlipidemia E55.9 Vitamin D deficiency, unspecified E66.9 Obesity, unspecified L91.8 Other hypertrophic disorders of the skin S90.31xA Contusion of RIGHT foot, initial encounter M54.5 Low back pain Z68.34 Body mass index (BMI) 34.0-34.9, adult Office Visit 12/14/2016 3:00p [facility] Oliverio Mancini MD I10 Essential ( primary) hypertension E11.65 Type 2 diabetes mellitus with hyperglycemia E78.2 Mixed hyperlipidemia E55.9 Vitamin D deficiency, unspecified K21.9 Gastro-esophageal reflux disease without esophagitis E66.9 Obesity, unspecified G47.33 Obstructive sleep apnea (adult) (pediatric) N19 Unspecified kidney failure G31.84 Mild cognitive impairment, so stated Office Visit 08/05/2016 3:45p [facility] Oliverio Mancini MD I10 Essential ( primary) hypertension E11.65 Type 2 diabetes mellitus with hyperglycemia E78.2 Mixed hyperlipidemia K21.9 Gastro-esophageal reflux disease without esophagitis E66.9 Obesity, unspecified G47.33 Obstructive sleep apnea (adult) (pediatric) N19 Unspecified kidney failure Z72.0 Tobacco use E55.9 Vitamin D deficiency, unspecified R05 Cough Z12.5 Encounter for screening for malignant neoplasm of prostate Office Visit 03/30/2016 4:15p [facility] Oliverio Mancini MD I10 Essential ( primary) hypertension E11.65 Type 2 diabetes mellitus with hyperglycemia E78.2 Mixed hyperlipidemia K21.9 Gastro-esophageal reflux disease without esophagitis N19 Unspecified kidney failure E66.9 Obesity, unspecified G47.33 Obstructive sleep apnea (adult) (pediatric) Z12.11 Encounter for screening for malignant neoplasm of colon Z72.0 Tobacco use Z12.2 Encntr screen for malignant neoplasm of respiratory organs Office Visit 11/18/2015 3:00p [facility] Oliverio Mancini MD I10 Essential ( primary) hypertension E11.65 Type 2 diabetes mellitus with hyperglycemia E55.9 Vitamin D deficiency, unspecified E78.2 Mixed hyperlipidemia E66.9 Obesity, unspecified N19 Unspecified kidney failure K21.9 Gastro-esophageal reflux disease without esophagitis Office Visit 06/26/2015 4:15p [facility] Oliverio Mancini MD I10 Essential ( primary) hypertension E11.65 Type 2 diabetes mellitus with hyperglycemia E66.9 Obesity, unspecified N19 Unspecified kidney failure G47.33 Obstructive sleep apnea (adult) (pediatric) F17.210 Nicotine dependence, cigarettes, uncomplicated S33.5xxA Sprain of ligaments of lumbar spine, initial encounter M25.562 Pain in LEFT knee E55.9 Vitamin D deficiency, unspecified Z12.5 Encounter for screening for malignant neoplasm of prostate Z79.899 Other mcc (current) drug therapy E78.2 Mixed hyperlipidemia Office Visit 03/05/2015 4:15p [facility] Oliverio Mancini MD 250.02 Diabetes Mellitus W/O Compl Type II Or Unspec Type Uncontrol 401.1 Hypertension Benign 780.57 Apnea, Unspecified Sleep Apnea 585.9 Chronic Kidney Disease Unspecified 791.0 Proteinuria 278.00 Obesity Unspec 305.1 Tobacco Use Disorder V73.89 Screening Examination Viral Diseases Other Spec Office Visit 10/15/2014 3:00p [facility] Oliverio Mancini 250.00 Diabetes Mellitus W/O MD Compl Type II Or Unspec Controlled 250.60 Diabetes W/ Neurological Manifestations Type II Controlled 357.2 Polyneuropathy In Diabetes 401.1 Hypertension Benign 272.2 Hyperlipidemia Mixed 780.57 Apnea, Unspecified Sleep Apnea 791.0 Proteinuria 268.9 Vitamin D Deficiency Unspec 305.1 Tobacco Use Disorder V16.42 Family History Malignant Neoplasm Prostate Plan of Treatment Future Appointment(s):03/15/2019 7:45 am - Schedule, Laboratory at [facility]2018 8:30 am - Oliverio Mancini MD at [facility]11/22/2018 - Oliverio Mancini MDZ00.00 Encounter for general adult medical examination without abnoFollow up: Follow up as [id number] Encounter for screening for cardiovascular disordersNew Xrays:Ultrasound AAA Screening, Scheduled: 12/16/18Follow up:Set up AAA [id number] Tobacco useZ68.35 Body mass index (BMI) 35.0-35.9, pkiuaR00.9 Obesity, unspecified
--- OUTSIDE RECORDS SUMMARY | 2018-11-23 20:59 | XMS REPORT | Continuity of Care Document ---
:1955 External Reference #:[id number] Author Name Oliverio Mancini MD Address [address] [place] [address] Care Team Providers Name Role Phone Oliverio Mancini MD Care Team Information Day Camp Counselor Unavailable Payers Date Identification Numbers Payment Provider Subscriber Effective: 2018 Policy Number: [id number] Medicare Alpesh R Contento Group Name: Federal [address] PayID: [id number] GRECIA Shetty [id number] Effective: 2012 Policy Number: [id number] [facility] Commercial Alpesh R Contento Group Number: [employer] [address] [address] Group Name: TYREE Rose [id number] PayID: [id number] Onset: 2005 [employer] Alpesh R Contento [address] [place] [address] Onset: 2010 Policy Number: [id number] Claudy Ins Alpesh R Contento PayID: [id number] [address] [place] [address] Advance Directives Description No Information Available Problems [...] Observation Comments Father DM2 Father CAD Father LA Father Cancer, Prostate Mother PVD Mother CHF Mother DM2 First Brother Essential Tremor Social History Type Date Description Comments Sex Unknown Marital Status Lives With Spouse 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 ETOH Use Occasionally consumes alcohol Tobacco Use [...] Digiovanna Succinate ER 2014 24HR tablet by Oliverio mouth MD every day Vitamin D3 10/15/ Active Capsules 2000Unit OTC 1 by E55.9 Rosalieiovanna 2014 mouth Oliverio once MD daily Humalog Mix 03/21/ Active Supn (75-25)100 120uni inject 36 E11.65 Digiovanna 75/25 Kwikpen 2011 Unit/ML ts to 40 , pako Duron MD under the skin every morning and 80 to 90 units under the skin every evening E11.22 Amlodipine 11/04/2011 Active Tablets 10mg 90tabs take one I10 Digarabellavanna, Besylate tablet by MD Oliverio mouth every day Lisinopril 08/29/2009 Active Tablets 40mg 90tabs take one I10 Rosalieiovanna, tablet by MD Oliverio mouth every day R80.1 N19 Aspirin Ec Low 11/13/[address] 81mg 100tabs 1 po qam E11.65 Unknown Dose with food I10 Torsemide Active Tablets 20mg 1 PO Q Am I10 Valdez Mcghee MD R60.0 N19 Onetouch Active Strips 200units Test Two Times E11.65 Digiovanna, Ultra Blue A Day as MD Oliverio Needed Maximum Daily Dose=Three Times E10.42 E11.22 Fluticasone Active Suspension 50mcg/Act 1 spray J31.0 James Jameson MD Propionate per nostril twice a day Zostavax 04/05/2017 Hx Suspension 80578Xfe/0 1 administer Digiovanna, - Rec .65ML u [...] Digiovanna, Calcium - 0 Tablet By MD Oliverio 04/05/2017 t Mouth a Every b Evening [...] 24HR every day 03/05/2015 Ergocalciferol Hx Capsules 19710Lrsq 1 1 by mouth Unknown - 2 every 1 10/06/2014 c week x 12 a weeks p s Penicillin V Hx Tablets 500mg 1 tab by Unknown Potassium - mouth 03/31/2016 three times a day Mometasone Hx Suspension 50mcg/Act 1 - 2 G47.33 James Jameson MD Furoate - Sprays/Nos 12/14/2016 tril qd J31.0 Immunizations CPT Code Status Date Vaccine Lot # [id number] Given 09/29/2018 Flu Vaccine NOS 82166 Given 09/14/2018 Prevnar 13 Pneumococal Conjugate Vaccine [id number] 15367 Given 01/23/2010 Tdap (Adacel) Ages 7 And Above Only 06909 Given 01/23/2010 Tdap (Adacel) Ages 7 And Above Only 99993 Given 11/07/2009 Pneumococcal 23 Immunization Adult Or [...] Result H/L Range Note [facility] S[facility] 143 mmol/L 135-146 1, 2 Potassium [...] 8 mmol/L 5-15 15 Hemoglobin A1c 12/22/2017 [facility] Hemoglobin A1c 7.0 % High 4.1-5.9 Estimated Average Glucose Calc 154 mg/dL High 71-140 Lipid Treatment 12/22/2017 [facility] Cholesterol 138 mg/dL 50-199 Triglycerides 137 mg/dL 30-200 HDL 37 mg/dL 29-71 16 Chol/ HDL Ratio 3.7 ratio Low 4.0-6.7 VLDL 27 mg/dL 2-29 LDL (Calc) 73 mg/dL 20-99 17 Alt 16 U/L 3-42 Ast 16 U/L 8-42 Laboratory test finding 12/22/2017 [facility] Vitamin D 25 Hydroxy 15 ng/mL Low 30-100 18 TSH 1.32 uIU/mL 0.35-4.94 CBC With Auto Diff 12/22/2017 [facility] WBC 5.0 K/uL 4.1-11.0 RBC 4.57 M/uL [...] 0.0 K/uL 0.0-0.3 Laboratory test finding 12/22/2017 [facility] PSA 1.200 ng/mL 0.000-4.000 19 Basic (BMP) [...] Triglycerides 113 mg/dL 30-200 HDL 46 mg/dL - 26 Chol/ HDL Ratio 3.2 ratio Low [...] Triglycerides 136 mg/dL 30-200 HDL 43 mg/dL 29-71 34 Chol/ HDL Ratio 5.3 ratio 4.0-6.7 [...] Triglycerides 132 mg/dL 30-200 HDL 33 mg/dL 29-71 42 Chol/ HDL Ratio 4.0 ratio 4.0-6.7 [...] Triglycerides 136 mg/dL 30-200 HDL 38 mg/dL - 59 Chol/ HDL Ratio 3.7 ratio Low 4.0-6.7 VLDL 27 mg/dL 2-29 LDL (Calc) 74 mg/dL 20-99 60 Alt 11 U/L 3-42 Ast 14 U/L 8-42 Basic (BMP) 06/19/2015 [facility] Sodium 141 mmol/L 134-142 61 Potassium 4.2 mmol/L 3.5-5.2 Chloride 104 mmol/L 97-109 Carbon Dioxide 31 mmol/L 24-34 Glucose 129 mg/dL High 70-105 BUN 13 mg/dL 6-26 Creatinine 1.5 mg/dL High 0.5-1.4 Calcium 9.6 mg/dL 8.5-10.2 Anion Gap 10 mmol/L 6-14 Non Katelynn Egfr 48 Low >60 62 Katelynn Egfr 58 Low >60 63 Laboratory test finding 06/19/2015 [facility] Hemoglobin A1c 7.5 % High 4.1- 5.9 Hepatitis C Virus Antibody NONREACTIVE Nonreactive Laboratory test finding 02/14/2015 [facility] Vit D,25 Hydroxy 38 ng/mL 31- 100 64 Lipid Treatment 02/14/2015 [facility] Cholesterol 141 mg/dL 50-199 Triglycerides 99 mg/dL 30-200 HDL 40 mg/dL 65 Chol/ HDL Ratio 3.5 ratio Low [...] 14 U/L 8-42 Laboratory test finding 09/28/2014 [facility] Vit D,25 Hydroxy 31 ng/mL 31- 100 [...] Low 30.0-100.0 eGFR 47.1 Lipid Panel 06/01/2014 [facility] Chol/HDL Ratio 3.7 ratio Cholesterol 143.0 mg/dL 50.0-199.0 HDL 39.0 mg/dL 29.0-67.0 LDL, Calculated 77.8 mg/dL 20.0-129.0 Triglycerides 131.0 mg/dL 30.0-249.0 vLDL 26.2 ng/dL Laboratory test finding 03/01/2014 [facility] Import % A1c 7.6 % High 4.1- [...] Low 30.0-100.0 eGFR 41.1 Lipid Panel 03/01/2014 [facility] Chol/HDL Ratio 4.1 ratio Cholesterol 147.0 mg/dL 50.0-199.0 HDL 36.0 mg/dL 29.0-67.0 LDL, Calculated 85.4 mg/dL 20.0-129.0 Triglycerides 128.0 mg/dL 30.0-249.0 vLDL 25.6 ng/dL Laboratory test finding 11/30/2013 [facility] Import % A1c 7.7 % High 4.1- [...] 19 Beginning 10/25/06 PSA values assayed at [facility] uses chemiluminescence methodology manufactured by [employer] for use on the DXI analyzer. Values [...] 130-159 High: 160-189 Very high: >189 36 4/ preOV Fastin hours Fastin hours Fastin hours 417 preOV Fastin hours 417 preOV Fastin hours 417 preOV Fastin hours 37 Updated reference range [...] 44 Beginning 10/25/06 PSA values assayed at [facility] uses chemiluminescence methodology manufactured by [employer] for use on the DXI analyzer. Values [...] Very high: >189 55 CC: DR [id number] [phone] 10/15 PRE-OV Fasting 56 Concerning GFR Guidelines: [...] 58 Beginning 10/25/06 PSA values assayed at [facility] uses chemiluminescence methodology manufactured by [employer] for use on the DXI analyzer. Values [...] 75 Beginning 10/25/06 PSA values assayed at [facility] uses an EIA methodology manufactured by [employer] for use on the DXI analyzer. Values obtained with different assay methods or kits can not be used interchangeably. Serum PSA measurement is not an absolute test for malignancy. The PSA value should be used in conjunction with information available from clinical evaluation and other diagnostic procedures. 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 E78.2 Mixed hyperlipidemia I10 Essential (primary) hypertension E55.9 Vitamin D deficiency, unspecified K21.9 Gastro-esophageal reflux disease without esophagitis G47.33 Obstructive sleep apnea (adult) (pediatric) Z72.0 Tobacco use Z23 Encounter for immunization Z68.36 Body mass index (BMI) 36.0-36.9, adult Office Visit 12/29/2017 10:00a [facility] Oliverio Mancini MD I10 Essential ( primary) hypertension E11.65 Type 2 diabetes mellitus with hyperglycemia E78.2 Mixed hyperlipidemia E55.9 Vitamin D deficiency, unspecified N19 Unspecified kidney failure Z72.0 Tobacco use E66.9 Obesity, unspecified K21.9 Gastro-esophageal reflux disease without esophagitis G47.33 Obstructive sleep apnea (adult) (pediatric) Z68.35 Body mass index (BMI) 35.0-35.9, adult Office Visit 08/09/2017 3:00p [facility] Oliverio Mancini MD I10 Essential ( primary) hypertension E11.65 Type 2 diabetes mellitus with hyperglycemia E78.2 Mixed hyperlipidemia E55.9 Vitamin D deficiency, unspecified E66.9 Obesity, unspecified N19 Unspecified kidney failure Z72.0 Tobacco use Z12.5 Encounter for screening for malignant neoplasm of prostate Office Visit 04/05/2017 3:45p [facility] Oliverio Mancini MD I10 Essential ( primary) hypertension E11.65 Type 2 diabetes mellitus with hyperglycemia E78.2 Mixed hyperlipidemia E55.9 Vitamin D deficiency, unspecified E66.9 Obesity, unspecified L91.8 Other hypertrophic disorders of the skin S90.31xA Contusion of RIGHT foot, initial encounter M54.5 Low back pain Z68.34 Body mass index (BMI) 34.0-34.9, adult Office Visit 12/14/2016 3:00p [facility] Oliverio Mancini MD I10 Essential ( primary) hypertension E11.65 Type 2 diabetes mellitus with hyperglycemia E78.2 Mixed hyperlipidemia E55.9 Vitamin D deficiency, unspecified K21.9 Gastro-esophageal reflux disease without esophagitis E66.9 Obesity, unspecified G47.33 Obstructive sleep apnea (adult) (pediatric) N19 Unspecified kidney failure G31.84 Mild cognitive impairment, so stated Office Visit 08/05/2016 3:45p [facility] Oliverio Mancini MD I10 Essential ( primary) hypertension E11.65 Type 2 diabetes mellitus with hyperglycemia E78.2 Mixed hyperlipidemia K21.9 Gastro-esophageal reflux disease without esophagitis E66.9 Obesity, unspecified G47.33 Obstructive sleep apnea (adult) (pediatric) N19 Unspecified kidney failure Z72.0 Tobacco use E55.9 Vitamin D deficiency, unspecified R05 Cough Z12.5 Encounter for screening for malignant neoplasm of prostate Office Visit 03/30/2016 4:15p Oliverio Roper MD I10 Essential ( primary) hypertension E11.65 Type 2 diabetes mellitus with hyperglycemia E78.2 Mixed hyperlipidemia K21.9 Gastro-esophageal reflux disease without esophagitis N19 Unspecified kidney failure E66.9 Obesity, unspecified G47.33 Obstructive sleep apnea (adult) (pediatric) Z12.11 Encounter for screening for malignant neoplasm of colon Z72.0 Tobacco use Z12.2 Encntr screen for malignant neoplasm of respiratory organs Office Visit 11/18/2015 3:00p Oliverio Roper MD I10 Essential ( primary) hypertension E11.65 Type 2 diabetes mellitus with hyperglycemia E55.9 Vitamin D deficiency, unspecified E78.2 Mixed hyperlipidemia E66.9 Obesity, unspecified N19 Unspecified kidney failure K21.9 Gastro-esophageal reflux disease without esophagitis Office Visit 06/26/2015 4:15p Oliverio Roper MD I10 Essential ( primary) hypertension E11.65 Type 2 diabetes mellitus with hyperglycemia E66.9 Obesity, unspecified N19 Unspecified kidney failure G47.33 Obstructive sleep apnea (adult) (pediatric) F17.210 Nicotine dependence, cigarettes, uncomplicated S33.5xxA Sprain of ligaments of lumbar spine, initial encounter M25.562 Pain in LEFT knee E55.9 Vitamin D deficiency, unspecified Z12.5 Encounter for screening for malignant neoplasm of prostate Z79.899 Other terminal manager (current) drug therapy E78.2 Mixed hyperlipidemia Office Visit 03/05/2015 4:15p Oliverio Roper MD 250.02 Diabetes Mellitus W/O Compl Type II Or Unspec Type Uncontrol 401.1 Hypertension Benign 780.57 Apnea, Unspecified Sleep Apnea 585.9 Chronic Kidney Disease Unspecified 791.0 Proteinuria 278.00 Obesity Unspec 305.1 Tobacco Use Disorder V73.89 Screening Examination Viral Diseases Other Spec Office Visit 10/15/2014 3:00p [facility] Oliverio Mancini, 250.00 Diabetes Mellitus W/O MD Compl Type II Or Unspec Controlled 250.60 Diabetes W/ Neurological Manifestations Type II Controlled 357.2 Polyneuropathy In Diabetes 401.1 Hypertension Benign 272.2 Hyperlipidemia Mixed 780.57 Apnea, Unspecified Sleep Apnea 791.0 Proteinuria 268.9 Vitamin D Deficiency Unspec 305.1 Tobacco Use Disorder V16.42 Family History Malignant Neoplasm Prostate Plan of Treatment Future Appointment(s):03/15/2019 7:45 am - Schedule, Laboratory at [facility]2018 8:30 am - Oliverio Mancini MD at [facility]11/22/2018 - Oliverio Mancini MDZ00.00 Encounter for general adult medical examination without abnoFollow up: Follow up as [id number] Encounter for screening for cardiovascular disordersNew Xrays:Ultrasound AAA Screening, Scheduled: 12/16/18Follow up:Set up AAA [id number] Tobacco useZ68.35 Body mass index (BMI) 35.0-35.9, kcoppN28.9 Obesity, unspecified
[2018-11-23 21:05] VITALS: BP 162/76
[2018-11-23] MEDS ORDERED: Ketorolac INJ* 30 MG/ML 1 ML VIAL IM ONE (21:29)
[2018-11-23] MEDS ORDERED: Amoxicillin PO (*) 500 MG CAP PO ONE (21:30)
[2018-11-23] MEDS ORDERED: Amoxicillin PO (*) 250 MG CAP PO ONE (21:30)
--- NOTE | 2018-11-23 21:36 | UC ---
Ear Complaint HPI - HPI Summary HPI Summary: 63 yo male with the onset of left otalgia today states he has had left ear problems all his life Had PETs as child decreased hearing - History of Current Complaint Chief Complaint: UCGeneralIllness Stated Complaint: LEFT EAR CONCERN Time Seen by Provider: 11/23/18 21:24 Hx Obtained From: Patient Onset/Duration: Gradual Onset, Lasting Hours Severity Initially: Severe Severity Currently: Severe Pain Intensity: 8 Pain Scale Used: 0-10 Numeric Aggravating Factors: Nothing Alleviating Factors: Nothing Associated Signs/Symptoms: Positive: Hearing Loss, URI Symptoms - mild - Allergies/Home Medications Allergies/Adverse Reactions: Allergies Allergy/AdvReac Type Severity Reaction Status Date / Time No Known Allergies Allergy Verified 11/23/18 21:05 Home Medications: Home Medications Ranitidine TAB (NF) [Zantac TAB (NF)] 300 mg PO DAILY 11/23/18 [History Confirmed 11/23/18] Rosuvastatin (NF) [Crestor (NF)] 5 mg PO 1700 11/23/18 [History Confirmed ] Torsemide TAB* [Demadex*] 20 mg PO EVERY OTHER DAY 11/23/18 [History Confirmed 11/23/18] PMH/Surg Hx/FS Hx/Imm Hx Previously Healthy: Yes Endocrine History: Diabetes, Dyslipidemia Cardiovascular History: Hypertension - Surgical History Surgical History: Yes Surgery Procedure, Year, and Place: L knee, 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 - Family History Known Family History: Positive: Hypertension - Social History Alcohol Use: Occasionally Substance Use Type: None Smoking Status (MU): Heavy Every Day Tobacco Smoker Type: Cigarettes Amount Used/How Often: about 1 pack daily Review of Systems All Other Systems Reviewed And Are Negative: Yes Constitutional: Positive: Fever Eyes: Positive: Negative ENT: Positive: Ear Ache Respiratory: Positive: Negative Cardiovascular: Positive: Negative Gastrointestinal: Positive: Negative Genitourinary: Positive: Negative Motor: Positive: Negative Neurovascular: Positive: Negative Musculoskeletal: Positive: Negative Neurological: Positive: Negative Psychological: Positive: Negative Physical Exam Triage Information Reviewed: Yes Appearance: Well-Appearing, No Pain Distress, Well-Nourished Vital Signs: Initial Vital Signs Temp 98.5 F 11/23/18 21:00 Pulse 70 11/23/18 21:00 Resp 17 11/23/18 21:00 BP 162/76 11/23/18 21:00 Pulse Ox 97 11/23/18 21:00 Vital Signs Reviewed: Yes Eyes: Positive: Conjunctiva Clear ENT: Positive: Nasal congestion, Nasal drainage, TM bulging - L, TM red - L, Uvula midline. Negative: TMs normal, Tonsillar swelling, Tonsillar exudate, Hoarse voice Neck: Positive: Supple, Nontender, No Lymphadenopathy Respiratory: Positive: Lungs clear, Normal breath sounds, No respiratory distress, No accessory muscle use Cardiovascular: Positive: RRR, No Murmur Musculoskeletal: Positive: ROM Intact, No Edema Neurological: Positive: Alert Psychological Exam: Normal Skin Exam: Normal Ear Complaint Course/Dx - Differential Dx/Diagnosis Provider Diagnosis: Left otitis media Discharge - Sign-Out/Discharge Documenting (check all that apply): Patient Departure All imaging exams completed and their final reports reviewed: No Studies - Discharge Plan Condition: Stable Disposition: HOME Patient Education Materials: Ear Infection (ED) Referrals: Oliverio Mancini MD [Primary Care Provider] - 5 Days (if not better) - Billing Disposition and Condition Condition: STABLE Disposition: Home
== END 2018-11-23 21:45 | disposition home or self-care (01) ==
LOC: UCCORT 20:38
DX: H66.92 Otitis media, unspecified, left ear (principal); F17.210 Nicotine dependence, cigarettes, uncomplicated; E11.9 Type 2 diabetes mellitus without complications; I10 Essential (primary) hypertension
CPT/HCPCS: 96372; 99202; A9270-GY; G0463; J1885